=== PATIENT | male | born 1995 | race Caucasian/White ===

== ENCOUNTER 2023-10-05 15:31 | Emergency (ER) | payer BC, SELFPAY ==
--- NOTE | ~2023-10-05 | XR_ITS ---
EXAMINATION: XR SHOULDER, LEFT CLINICAL INFORMATION: Pain, injury COMPARISON: None available. TECHNIQUE: AP external rotation, Grashey, scapular Y, and axillary views of the left shoulder. FINDINGS: The bones and soft tissues are normal. No fracture. Glenohumeral and acromioclavicular alignment is anatomic with normal joint space. No abnormal soft tissue calcifications. XR/XR shoulder LT min 2V IMPRESSION: Normal left shoulder. Electronically signed by: Harvey Espinal MD 10/05/2023 06:34 PM EDT
--- NOTE | ~2023-10-05 | XR_ITS ---
EXAMINATION: XR ELBOW, LEFT CLINICAL INFORMATION: Pain COMPARISON: None available. TECHNIQUE: AP, lateral, and oblique views of the left elbow. 3 views FINDINGS: The bones and soft tissues are normal. No fracture or joint effusion. Alignment is anatomic. Joint spaces are maintained. XR/XR elbow LT min 3V IMPRESSION: No fracture or dislocation. Electronically signed by: Whitney Mosley MD 10/05/2023 04:47 PM EDT
[2023-10-05 15:48] VITALS: BP 155/96; PULSE 95; RESP 18; TEMP 37.4; O2SAT 100; BMI 22.9
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
[2023-10-05 17:41] VITALS: BP 147/90; PULSE 108; RESP 16; TEMP 36.4; O2SAT 98
[2023-10-05] MEDS: Cyclobenzaprine HCl 5 MG TABLET PO (18:07)
[2023-10-05] MEDS: predniSONE 20 MG TABLET PO (18:07)
[2023-10-05] MEDS: Ketorolac Tromethamine 15 MG/ML VIAL IM (18:10)
[2023-10-05 19:06] VITALS: BP 147/90; PULSE 108; RESP 16; TEMP 36.4; O2SAT 98
== END 2023-10-05 19:07 | disposition home or self-care (01) ==
PROVIDERS: Emergency Provider Emergency Medicine
DX: M25.512 Pain in left shoulder (principal); M54.2 Cervicalgia; M25.522 Pain in left elbow
CPT/HCPCS: 73030; 73080; 96372; 99284; J1885